=== PATIENT | male | born 2000 | race African-American/Black ===

== ENCOUNTER 2024-08-11 15:46 | Emergency (ER) | payer OTHER ==
[~2024-08-11] VITALS: Ht 182.9 cm; Wt 68.0 kg
[2024-08-11 15:58] VITALS: O2SAT 100
[2024-08-11] MEDS: IBUPROFEN 600MG TABLET PO ONE (16:15)
[2024-08-11 17:53] VITALS: TEMP 36.83628
[2024-08-11 18:01] VITALS: BP 123/87; PULSE 66; RESP 18; O2SAT 100
== END 2024-08-11 18:03 | disposition home or self-care (01) ==
LOC: ER 15:46
DX: M25.562 Pain in left knee (principal); Y93.67 Activity, basketball
CPT/HCPCS: 29505; 73562; 99283